=== PATIENT | male | born 1960 | race Caucasian/White ===

== ENCOUNTER 2020-09-20 07:57 | Day surgery (SDC) | payer OTHER ==
[~2020-09-20] VITALS: Ht 175.3 cm; Wt 106.4 kg
[~2020-09-20 07:57] MED LIST: ASPIR 8181 M1 PO; ATOR20 PO; BISOPROLOL-HCT1 EAC1 PO; BISOPROLOL-HCT1 EAC2 PO; HYDROCHLOROTH12.5 MG PO; LISI10; VIT B6
--- NOTE | 2020-09-20 09:36 | NUR ---
09/20/20 0936 Ana Lomax History, Chart, Medications and Allergies reviewed before start of procedure.PATIENT DETERMINED TO BE ASA APPROPRIATE FOR PROPOFOL SEDATION PRIOR TO START OF PROCEDURE BY MONITOR INTACT WITH CONTINUOUS PULSE OXIMETRY AND INTERMITTENT BP. 3-LEAD EKG REVIEWED WITH PHYSICIAN PRIOR TO START OF PROCEDURE.O2 VIA N/C INTACT THROUGHOUT SEDATION/PROCEDURE.
--- NOTE | 2020-09-20 10:31 | NUR ---
Discharge instructions reviewed with patient. Patient verbalizes understanding. Copy given to patient to take home. Patient States Post-Procedure ride home has been arranged. Discharged via wheelchair to private car for ride home.
== END 2020-09-20 23:52 | disposition home or self-care (01) ==
LOC: ORSCMMR 07:57
PROVIDERS: Internal Medicine Gastroenterology
PROC: 0DBK8ZX Excision of Ascending Colon, Via Natural or Artificial Opening Endoscopic, Diagnostic (ICD-10-PCS; principal; 2020-09-20 09:00)
PROC: 0DBN8ZX Excision of Sigmoid Colon, Via Natural or Artificial Opening Endoscopic, Diagnostic (ICD-10-PCS; principal; 2020-09-20 09:00)
PROC: 0DBM8ZX Excision of Descending Colon, Via Natural or Artificial Opening Endoscopic, Diagnostic (ICD-10-PCS; principal; 2020-09-20 09:00)
DX: Z12.11 Encounter for screening for malignant neoplasm of colon (principal); K63.5 Polyp of colon; D12.2 Benign neoplasm of ascending colon; I10 Essential (primary) hypertension; E78.00 Pure hypercholesterolemia, unspecified; F17.210 Nicotine dependence, cigarettes, uncomplicated; Z79.82 Long term (current) use of aspirin; Z79.899 Other long term (current) drug therapy
CPT/HCPCS: 88305; J2250; J2704; J7120

== ENCOUNTER 2022-06-17 09:43 | Day surgery (SDC) | payer OTHER ==
[~2022-06-17] VITALS: Ht 175.3 cm; Wt 112.3 kg
[~2022-06-17 09:43] MED LIST changes: -LISI10; +LISI10 PO
--- NOTE | 2022-06-17 16:25 | NUR ---
PT GIVEN LUNCH TRAY AND COFFEE. 2 CC REMOVED FROM TR BAND. NO BLEEIDNG NOTED. SITE SOFT AND NON-TENDER PER PT
--- NOTE | 2022-06-17 16:41 | NUR ---
2 CC REMOVED FROM TR BAND. NO BLEEDING NOTED. SITE SOFT AND NON-TENDER.
--- NOTE | 2022-06-17 16:49 | NUR ---
3CC REMOVED FROM TR BAND. NO BLEEDING NOTED. SITE SOFT AND NON-TENDER PER PT. GROIN SITES SOFT AND NO BLEEDING NOTED. PT REPORTS MILD TENDERNESS TO R GROIN SITE. DENIES PAIN OTHERWISE.
--- NOTE | 2022-06-17 17:53 | NUR ---
PT GIVEN DC INSTRUCTIONS AND VERBALIZED UDNERSTANDING. IV OUT. GROIN SITE SOFT AND NON-TENDER. NO BLEEDING NOTED. PT CHANGED INTO CLOTHES. PT AMBULATED TO RESTROOM. CLOTH DOT PLACED TO RADIAL ACCESS SITE. ARM BOARD PLACED. SLING APPLIED. PT TAKEN TO [facility] VIA WC. FAMILY WAITING IN PARKING LOT TO TAKE PT HOME.
== END 2022-06-17 17:56 | disposition home or self-care (01) ==
LOC: MHTC 09:43
DX: I70.213 Atherosclerosis of native arteries of extremities with intermittent claudication, bilateral legs (principal); I10 Essential (primary) hypertension; E78.5 Hyperlipidemia, unspecified; I11.0 Hypertensive heart disease with heart failure; I50.9 Heart failure, unspecified; I25.10 Atherosclerotic heart disease of native coronary artery without angina pectoris; Z87.891 Personal history of nicotine dependence; Z79.82 Long term (current) use of aspirin
CPT/HCPCS: 36140; 36245; 75710; 75716; 75774; 76937; 82947; 99152; 99153; C1769; C1887; C1894; J1644; J2250; J2370; J3010; J7030; J7040; Q9967